=== PATIENT | male | born 1955 | race Caucasian/White ===

== ENCOUNTER 2020-10-09 04:20 | Inpatient (IN) | payer OTHER ==
[~2020-10-09] VITALS: Ht 180.3 cm; Wt 86.4 kg
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
[2020-10-09] MEDS ORDERED: RIVA20TA PO (04:30)
--- NOTE | 2020-10-09 04:31 | NUR ---
PIV STARTED EN ROUTE BY BRIAN
--- NOTE | 2020-10-09 04:32 | NUR ---
PT IN HANDCUFFS. GUARD AT BEDSIDE.
--- NOTE | 2020-10-09 05:00 | NUR ---
PT TO IMAGING
[2020-10-09 05:04] LABS: BASOPHILS % (AUTO) 1 % (0-1); EOSINOPHILS % (AUTO) 2 % (1-7); LYMPHOCYTES % (AUTO) 33 % (22-44); MEAN CORPUSCULAR HEMOGLOBIN 31.1 pg (27.5-34.5); MEAN CORPUSCULAR HGB CONC 34.3 g/dL (33.2-36.2); MEAN PLATELET VOLUME 8.6 fL (7.4-10.4); MONOCYTES % (AUTO) 7 % (2-9); NEUTROPHILS % (AUTO) 58 % (42-75); PLATELET COUNT 131 x10^3/uL (130-400); RED BLOOD COUNT 4.94 x10^6/uL (4.38-5.82)
[2020-10-09 05:08] LABS: MD NO
[2020-10-09 05:12] LABS: ALANINE AMINOTRANSFERASE 33 U/L (12-78); ALBUMIN 3.5 g/dL (3.4-5.0); ANION GAP 5 mmol/L (5-15); CHLORIDE 110 mmol/L (98-107); CREATININE 1.08 mg/dL (0.7-1.3)
[2020-10-09 05:16] LABS: ALKALINE PHOSPHATASE 77 U/L (45-117); BILIRUBIN,TOTAL 0.6 mg/dL (0.2-1.0); TOTAL PROTEIN 6.6 g/dL (6.4-8.2); TROPONIN I < 0.015 ng/mL (0.000-0.045)
[2020-10-09 06:05] LABS: INTERNATIONAL NORMALIZED RATIO 1.17 (0.93-1.1); PROTHROMBIN TIME 12.4 Seconds (9.6-11.5)
[2020-10-09] MEDS ORDERED: OMNIPAQUE 350 MG/ML, 100ML BOTTLE ONE (06:12)
--- NOTE | 2020-10-09 06:24 | NUR ---
PT RESTING IN GURNEY, NO NEEDS AT THIS TIME. GUARD AT BEDSIDE.
--- NOTE | 2020-10-09 06:51 | NUR ---
REPORT GIVEN TO MARY SAAVEDRA
--- NOTE | 2020-10-09 07:10 | NUR ---
PT IN CUSTODY WITH DEPUTY AND BEDSIDE AND IN HANDCUFFS. A&O, NO BLEEDING AT SITE OF FOREHEAD WOUND. PT STATES HE FEELS DIZZY. DESCRIBES HE HAS BEEN BLACKING OUT AND THAT HE PASSED OUT THREE TIMES IN ONE DAY A WEEK AGO AND DOES NOT RECALL WHAT HAPPENED LAST NIGHT.
--- NOTE | 2020-10-09 08:00 | NUR ---
PROVIDER AT BEDSIDE EVALUATING PT AND DISCUSSING PLAN FOR SERIAL CT'S OF BRAIN. PT A&O AND NO DISTRESS AT THIS TIME.
--- NOTE | 2020-10-09 10:15 | NUR ---
REPORT TO CHANDA ARMAS RN. PT TO BE TRANSPORTED TO FLOOR
--- NOTE | 2020-10-09 10:30 | NUR ---
HOSPITALIST AT BEDSIDE EXAMINING PT
[2020-10-09] MEDS ORDERED: ACETAMINOPHEN 325 MG TABLET PO PRN (11:00)
[2020-10-09] MEDS ORDERED: MELATONIN 5 MG TABLET PO PRN (11:00)
[2020-10-09] MEDS ORDERED: HYDROcodone/APAP 5/325 TABLET PO PRN (11:00)
[2020-10-09] MEDS ORDERED: ONDANSETRON 2MG/ML, 2ML IVPush PRN (11:00)
[2020-10-09] MEDS ORDERED: BISACODYL 10 MG SUPP PR PRN (11:00)
[2020-10-09] MEDS ORDERED: DOCUSATE 100 MG CAPSULE PO PRN (11:00)
[2020-10-09] MEDS ORDERED: ONDANSETRON ODT 4 MG PO PRN (11:00)
--- NOTE | 2020-10-09 12:14 | NUR ---
TASK RN: PT EATING LUNCH WITHOUT DIFFICULTY, VSS.
--- NOTE | 2020-10-09 12:19 | NUR ---
REPORT TO TYSON SAAVEDRA.
[2020-10-09 12:40] VITALS: BP 127/79
[2020-10-09 12:57] VITALS: BP_SYST 115; BP_SYST 116; BP_DIAS 74; BP_DIAS 79
[2020-10-09 12:58] VITALS: BP 106/78
[2020-10-09] MEDS: LACTATED RINGERS 1,000 ML IV SCH (13:42)
[2020-10-09] MEDS ORDERED: CITA40TA5 PO (15:05)
[2020-10-09 15:19] LABS: MICROSCOPIC NOT IND
[2020-10-09] MEDS: CITALOPRAM 20 MG TABLET PO SCH (15:44)
[2020-10-09 18:41] VITALS: BP 120/68
[2020-10-10 00:06] VITALS: BP 117/71
[2020-10-10] MEDS: LACTATED RINGERS 1,000 ML IV SCH ×2 (02:25→14:11)
[2020-10-10 06:17] LABS: BASOPHILS % (AUTO) 1 % (0-1); EOSINOPHILS % (AUTO) 2 % (1-7); LYMPHOCYTES % (AUTO) 36 % (22-44); MEAN CORPUSCULAR HEMOGLOBIN 31.2 pg (27.5-34.5); MEAN CORPUSCULAR HGB CONC 34.5 g/dL (33.2-36.2); MEAN PLATELET VOLUME 9.1 fL (7.4-10.4); MONOCYTES % (AUTO) 7 % (2-9); NEUTROPHILS % (AUTO) 55 % (42-75); PLATELET COUNT 132 x10^3/uL (130-400); RED BLOOD COUNT 4.79 x10^6/uL (4.38-5.82); RED CELL DISTRIBUTION WIDTH 13.4 % (9.4-14.8)
[2020-10-10 06:19] LABS: MD NO
[2020-10-10 06:26] LABS: ALBUMIN 3.3 g/dL (3.4-5.0); ANION GAP 6 mmol/L (5-15); CALCIUM 8.7 mg/dL (8.5-10.1); CHLORIDE 110 mmol/L (98-107)
[2020-10-10 06:53] LABS: ALANINE AMINOTRANSFERASE 31 U/L (12-78); ALKALINE PHOSPHATASE 74 U/L (45-117); BILIRUBIN,TOTAL 0.8 mg/dL (0.2-1.0); CHOL/HDL RATIO 4.6; CHOLESTEROL, TOTAL 146 mg/dL (140-239); CREATININE 1.05 mg/dL (0.7-1.3); HDL CHOL % 22 % (26-37); HDL CHOLESTEROL (DIRECT) 32 mg/dL (40-60); LDL CHOLESTEROL,CALCULATED 87 mg/dL (54-169); LDL/HDL RATIO 2.7 (0.5-3.0); TOTAL PROTEIN 6.2 g/dL (6.4-8.2); TRIGLYCERIDES 133 mg/dL (50-200); VLDL CHOLESTEROL 27 mg/dL (0-25)
[2020-10-10 07:54] VITALS: BP 121/74
[2020-10-10 07:55] VITALS: BP 95/68
[2020-10-10 07:56] VITALS: BP 106/72
[2020-10-10] MEDS: CITALOPRAM 20 MG TABLET PO SCH (08:53)
[2020-10-10] MEDS ORDERED: GADOTERATE 10 MMOL/20 ML VIAL ONE (10:04)
[2020-10-10 12:01] VITALS: BP 129/80
[2020-10-10 19:36] VITALS: BP 119/71
[2020-10-11 01:13] VITALS: BP 111/69
[2020-10-11] MEDS: LACTATED RINGERS 1,000 ML IV SCH (05:00)
[2020-10-11 05:47] LABS: ANION GAP 6 mmol/L (5-15); CALCIUM 8.8 mg/dL (8.5-10.1); CHLORIDE 110 mmol/L (98-107); CREATININE 1.14 mg/dL (0.7-1.3)
[2020-10-11 07:46] VITALS: BP 116/72
[2020-10-11] MEDS: CITALOPRAM 20 MG TABLET PO SCH (08:46)
[2020-10-11] MEDS ORDERED: RIVA20TA PO (12:04)
[2020-10-11] MEDS ORDERED: ACET325T26 PO (12:04)
[2020-10-11 13:00] VITALS: BP 117/77
[2020-10-11] MEDS ORDERED: LEVE500T53 PO (13:41)
== END 2020-10-11 17:06 | disposition home or self-care (01) | DRG 83 ==
LOC: ED 06:20 → EDIP 08:47 → 3N 10:15 → EDIP 10:48 → 4WST 12:50 → UNDODISIN 10-11 17:03
PROVIDERS: ADMIT Internal Medicine; ATTEND Internal Medicine
DX: S06.6X9A Traumatic subarachnoid hemorrhage with loss of consciousness of unspecified duration, initial encounter (principal); D68.9 Coagulation defect, unspecified; S06.5X9A Traumatic subdural hemorrhage with loss of consciousness of unspecified duration, initial encounter; F17.210 Nicotine dependence, cigarettes, uncomplicated; F32.9 Major depressive disorder, single episode, unspecified; I10 Essential (primary) hypertension; I35.8 Other nonrheumatic aortic valve disorders; M19.90 Unspecified osteoarthritis, unspecified site; Z79.01 Long term (current) use of anticoagulants; Z86.711 Personal history of pulmonary embolism; Z86.718 Personal history of other venous thrombosis and embolism; Z91.19 Patient's noncompliance with other medical treatment and regimen; Z79.899 Other long term (current) drug therapy; Y92.009 Unspecified place in unspecified non-institutional (private) residence as the place of occurrence of the external cause; W18.30XA Fall on same level, unspecified, initial encounter; Y93.89 Activity, other specified; Y99.8 Other external cause status
CPT/HCPCS: 36415; 99285; A9575; 70450; 70496; 70498; 70553; 71046; 72125; 80048; 80053; 80061; 81003; 83735; 84443; 84484; 85025; 85610; 93005; 93306; 95819; G0378; Q9967; J7120